=== PATIENT | female | born 1955 | race Caucasian/White ===

== ENCOUNTER → 2017-06-30 | Outpatient (CLI) | payer OTHER ==
[2016-01-14 11:42] VITALS: BMI 24.3
[~2017-06-30] MED LIST: ALB18R INH; ATOR10TA24 PO; BUTA1CAP51 PO; CAL600 PO; DIPH-740 PO; DOCU-202 PO; Docusate Sodium PO; ESTR42.5 VG; FLUT1DIS27 IH; HYDR-385 PO; LEV125 PO; LEVO-3 PO; LEVO88TA45 PO; LIOT5TAB18 PO; LOR5/325 PO; ONDA4TAB PO; PRED20TA6 PO; SIMV-49 PO
== END ==
LOC: RESP 20:53
PROVIDERS: ATTEND Internal Medicine
DX: G47.30 Sleep apnea, unspecified (principal); G47.34 Idiopathic sleep related nonobstructive alveolar hypoventilation; G47.33 Obstructive sleep apnea (adult) (pediatric); G47.36 Sleep related hypoventilation in conditions classified elsewhere; E66.9 Obesity, unspecified; G47.61 Periodic limb movement disorder

== ENCOUNTER → 2017-09-04 | Outpatient (CLI) | payer OTHER ==
[2016-01-14 11:42] VITALS: BMI 24.3
--- NOTE | 2017-09-04 08:53 | EKG ---
FACILITY: PATIENT NAME: DAV SALAS : [id number] MR: [id number] V: [id number] EXAM DATE: ORDERING PHYSICIAN: CHECO DURAND TECHNOLOGIST: STEVO Jones Reason : PREOP-KNEE Blood Pressure : / mmHG Vent. Rate : 050 BPM Atrial Rate : 050 BPM P-R Int : 190 ms QRS Dur : 092 ms QT Int : 514 ms P-R-T Axes : 056 049 051 degrees QTc Int : 468 ms Sinus bradycardia with sinus arrhythmia Otherwise normal ECG When compared with ECG of 10-JAN-2016 10:04, premature atrial complexes are no longer present Confirmed by ESE CHAU ([id number]) on 09/04/2017 1:02:48 PM Referred By: BENIGNO Confirmed By:ESE CHAU
== END ==
LOC: RESP 08:42
PROVIDERS: ATTEND Anesthesiology
DX: Z01.810 Encounter for preprocedural cardiovascular examination (principal); S83.242A Other tear of medial meniscus, current injury, left knee, initial encounter; S80.02XA Contusion of left knee, initial encounter; M22.42 Chondromalacia patellae, left knee
CPT/HCPCS: 93005

== ENCOUNTER → 2017-09-18 | Outpatient (CLI) | payer OTHER ==
[2016-01-14 11:42] VITALS: BMI 24.3
--- NOTE | 2017-09-18 13:57 | RADIOLOGY IMAGING REPORT ---
[place] [facility] [place] [place] Page Kaminski : 1955 MR: [id number] V: [id number] EXAM DATE: ORDERING PHYSICIAN: CHECO DURAND TECHNOLOGIST: [place] [facility] [place] Kaminski : 1955 Visit/Account:[id number] Date of Sevice: 09/18/2017 Exam type: CHEST PA AND LAT History: Orchitis cough and shortness of breath Comparison: None. Findings: There is mild hyperinflation lung reina. There is no evidence of focal infiltrates, pleural effusio ns or pulmonary edema. Cardiac silhouette is upper limits of normal in size. There moderate joint c hanges thoracic spine IMPRESSION: 1. Hyperinflation of the lung reina although no evidence of acute pulmonary consolidation Report Dictated By: Tete Pittman MD at 09/18/2017 1:52 PM Report E-Signed By: Tete Pittman MD at 09/18/2017 1:53 PM WSN:[email or web address]
== END ==
LOC: RAD 11:53
PROVIDERS: ATTEND Family Medicine
DX: R91.8 Other nonspecific abnormal finding of lung field (principal)
CPT/HCPCS: 71046

== ENCOUNTER → 2017-11-22 | Outpatient (CLI) | payer OTHER ==
[2016-01-14 11:42] VITALS: BMI 24.3
== END ==
LOC: RESP 00:43
PROVIDERS: ATTEND Internal Medicine
DX: J98.4 Other disorders of lung (principal)
CPT/HCPCS: 94060; 94726; 94729

== ENCOUNTER → 2019-01-08 | Outpatient (CLI) | payer OTHER ==
[2016-01-14 11:42] VITALS: BMI 24.3
[~2019-01-08] MED LIST changes: +IOPAMIDOL 76% 100 ML INFUS BTL 100 ML ONE
--- NOTE | 2019-01-08 09:35 | RADIOLOGY IMAGING REPORT ---
FACILITY: [facility] [place] PATIENT NAME: Page Kaminski : 1955 MR: [id number] V: [id number] EXAM DATE: ORDERING PHYSICIAN: CHECO DURAND TECHNOLOGIST: Location: [facility] [place] Patient: Page Kaminski : 1955 Visit/Account:[id number] Date of Sevice: 01/08/2019 CT ABDOMEN PELVIS W/ CON HISTORY: Abdominal pain TECHNIQUE: Following administration of IV contrast contiguous axial images acquired through the abdom en/pelvis. Coronal and sagittal reformatting also performed. One of the following dose optimization techniques was utilized in the performance of this exam: Automated exposure control; adjustment of t he mA and/or kV according to the patient's size; or use of an iterative reconstruction technique. S pecific details can be referenced in the facility's radiology CT exam operational policy. CONTRAST: 75 mL Isovue-370 COMPARISON: None. FINDINGS: Visualized lung bases: Negative. Hepatobiliary: Remote cholecystectomy. Normal liver. Spleen: Spleen is borderline enlarged measuring 13 cm craniocaudad dimension. Otherwise normal. Adrenals: There is a 1 cm round left adrenal lesion. It is homogenous and measures 35 Hounsfield un its. Pancreas: Negative. Kidneys ureters or bladder: Negative. Genitalia: Remote hysterectomy. GI: Large and small bowel are unremarkable. There are no diverticuli or evidence of inflammatory ch anges. An appendix is not seen and has probably been surgically excised. Vessels/spaces/nodes: Negative. Bones/soft tissues: There is a hemangioma in the L2 vertebral body occupying most of the vertebrae. There are reactive endplate changes with sclerosis seen at T8-T9 and T9-T10 represent disc disease. There are no concerning bone lesions. Additional findings: Evidence of a previous left mastectomy. IMPRESSION: No acute intra-abdominal pathology is identified. Borderline splenomegaly. 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 1 cm left adrenal lesion. Statistically this is most likely to represent a benign adrenal adenoma bu t this cannot be confirmed on this postcontrast exam. Primary adrenal functional tumor or metastasis cannot be excluded. Furthermore, I note this patient has had a left mastectomy and presumptively hi story of breast cancer and consequently this warrants further evaluation. Recommend follow-up CT or MRI of the abdomen with and without IV contrast with specified adrenal adenoma protocol for further c haracterization of this lesion. Report Dictated By: Onofre Mckeon MD at 01/08/2019 8:30 AM Report E-Signed By: Onofre Mckeon MD at 01/08/2019 9:26 AM WSN:[email or web address]
== END ==
LOC: CT 01:00
PROVIDERS: ATTEND Family Medicine
DX: R10.31 Right lower quadrant pain (principal); R16.1 Splenomegaly, not elsewhere classified; Z90.12 Acquired absence of left breast and nipple
CPT/HCPCS: 36415; 74177; 82565; 84520; Q9967

== ENCOUNTER → 2019-01-17 | Outpatient (CLI) | payer OTHER ==
[2016-01-14 11:42] VITALS: BMI 24.3
--- NOTE | 2019-01-17 12:15 | RADIOLOGY IMAGING REPORT ---
[place] [facility] [place] NAME: Page Kaminski : 1955 MR: [id number] V: [id number] EXAM DATE: ORDERING PHYSICIAN: CHECO DURAND TECHNOLOGIST: Location: [facility] Patient: Page Kaminski : 1955 Visit/Account:[id number] Date of Sevice: 01/17/2019 CT ABDOMEN WITH AND WITHOUT CONTRAST CLINICAL INFORMATION: Left adrenal mass, history of breast cancer with mastectomy TECHNIQUE: Axial CT images were obtained through the abdomen before and after injection of nonionic iodinated intravenous contrast. Reformatted coronal and sagittal images were also obtained. Pre cont rast and delayed images were obtained. Dose Lowering Technique One of the following dose optimization techniques was utilized in the performance of this exam: Autom ated exposure control; adjustment of the mA and/or kV according to the patient's size; or use of an i terative reconstruction technique. Specific details can be referenced in the facility's radiology C T exam operational policy. CONTRAST: 75ml of IV Isovue-370 contrast. COMPARISON: CT abdomen and pelvis January 08, 2019. FINDINGS: Lower lung reina: Limited views lower lung field are unremarkable. Liver: Postsurgical changes from a cholecystectomy Biliary: Postsurgical changes from a cholecystectomy Pancreas: Normal appearance. Spleen: Accessory splenule borderline spinal megaly appears unchanged Adrenal glands: Right adrenal gland appears unremarkable There is a 1 cm well-circumscribed hypoattenuating mass left adrenal gland. The precontrast Hounsfie ld units of -8.9 and a greater than 50% washout of contrast on the delayed images are consistent with a benign adenoma Kidneys / retroperitoneum: No evidence of nephrolithiasis or hydronephrosis Bowel / peritoneum / mesenteries: The visualized small and large bowel appear unremarkable. Vessels: No significant atherosclerotic calcification seen throughout a nonaneurysmal abdominal aorta and branches. Musculoskeletal / Body wall: Again noted is a hemangioma of the L2 vertebral body Lymph node assessment: No pathologic adenopathy identified. IMPRESSION: 1. 1 cm benign adenoma in the left adrenal gland Postsurgical changes from a cholecystectomy 2. 3. Report Dictated By: Tete Pittman MD at 01/17/2019 11:12 AM Report E-Signed By: Tete Pittman MD at 01/17/2019 12:07 PM WSN:[email or web address]
== END ==
LOC: CT 03:24
PROVIDERS: ATTEND Family Medicine
DX: D35.02 Benign neoplasm of left adrenal gland (principal); Z90.49 Acquired absence of other specified parts of digestive tract
CPT/HCPCS: 74170; Q9967